=== PATIENT | male | born 1995 | race Caucasian/White ===

== ENCOUNTER 2024-08-11 21:31 | Emergency (ER) | payer BC, SELFPAY ==
[2024-08-11 21:34] VITALS: BP 158/103; PULSE 81; TEMP 36.8; O2SAT 98; BMI 34.4
[2024-08-11] MEDS: TETRACAINE HCL 0.5% OP SOL 80 DROP/4 ML BOTTLE OP (21:59)
[2024-08-11] MEDS: FLUORESCEIN SODIUM 1 MG STRIP OP (22:00)
--- NOTE | 2024-08-11 22:10 | PC.NURSE ---
Unable to obtain visual acuity--pt photophobic
--- NOTE | 2024-08-11 22:18 | ED_ITS ---
HPI - Eye Problem General Chief complaint: Eye Problems Stated complaint: EYE Time Seen by Provider: 08/11/24 21:44 Source: patient Mode of arrival: ambulance Limitations: no limitations History of Present Illness HPI Narrative: cc - left eye fb Pt was creating a wooden project and using a router earlier today when he felt sawdust go into his left eye. He used saline rinse to try and remove it and also flushed the eye with tap water. He admitted that he has been rubbing his eye a lot since this occurred. No vision loss or decrease. No blurred vision. Related Data Allergies Allergy/AdvReac Type Severity Reaction Status Date / Time No Known Drug Allergies Allergy Verified 08/11/24 21:41 PFSH PFSH Social History Little interest or pleasure in doing things: not at all Feeling down, depressed, or hopeless: not at all Exam Narrative Exam Narrative: General: The patient appears well and in no apparent distress. Patient is resting comfortably on cart. Skin: Warm, dry, no pallor noted. Head: Normocephalic, atraumatic Eye: Normal extraocular motion without associated pain. Pupils equal, round and reactive to light. Conjunctival injection noted throughout the left eye. mild swelling of the upper/lower eyelid. Patient's upper eyelid was everted - no evidence of foreign body underneath the eyelid and no foreign bodies observed within the gutters or beneath the lower eyelid. The patient had TETRACAINE applied to the left eye with fluorescein dye instilled afterward. Exam with Wood's lamp showed NO uptake at the cornea. No evidence of hyphema, dendritic lesion, corneal ulcerations, preseptal cellulitis or orbital cellulitis. Ears, Nose, Mouth, and Throat: oral mucosa is moist Respiratory: Patient is in no distress Neurological: A&O x4, normal speech Psychiatric: Cooperative and interactive. Constitutional Vital Signs, click to edit/add: Last Vital Signs Temp 98.3 F 08/11/24 21:34 Pulse 81 08/11/24 21:34 Resp 16 08/11/24 21:34 BP 158/103 H 08/11/24 21:34 Pulse Ox 98 08/11/24 21:34 O2 Del Method Room Air 08/11/24 21:34 Course Vital Signs Vital signs: Vital Signs Temperature 98.3 F 08/11/24 21:34 Pulse Rate 81 08/11/24 21:34 Respiratory Rate 16 05/31/25 21:34 Blood Pressure 158/103 H 08/11/24 21:34 Pulse Oximetry 98 08/11/24 21:34 Oxygen Delivery Method Room Air 08/11/24 21:34 Temperature 98.3 F 08/11/24 21:34 Pulse Rate 81 08/11/24 21:34 Respiratory Rate 16 08/11/24 21:34 Blood Pressure 158/103 H 08/11/24 21:34 Pulse Oximetry 98 08/11/24 21:34 Oxygen Delivery Method Room Air 08/11/24 21:34 MDM - Eye Problem MDM Narrative Medical decision making narrative: No corneal abrasion noted but there is injection in the left eye, likely from a prior foreign body or dust that has been subsequently rinsed out. Patient has been rubbing that eye so as a result the upper and lower left eyelids are slightly swollen and his upper left cheek is red and swollen. Pt informed of my findings and he was given tobradex ophth solution with the first dose applied to the left eye - 1-2 drops - and the bottle given to the patient to use at home. he was instructed to apply 1 drop to the left eye 4 times daily for one week. 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 Discharge Plan Discharge Chief Complaint: Eye Problems Clinical Impression: Acute iritis, Eye foreign bodies Patient Disposition: Home, Self-Care Time of Disposition Decision: 22:26 Print Language: Cam[place]onian Instructions: Iritis (ED) Additional Instructions: apply 1 drop of tobradex solution to left eye 4 times daily for 7 days Referrals: FRANSISCA NIEVES [Physician, Optometry] - 1 week Referral Note: [address] , [place] [address]
[2024-08-11] MEDS: TOBRAMYCIN/DEXAMETHASONE 0.3%/0.1% OP SUSP 50 DROP/2.5 ML BOTTLE 2 ML OP (22:25)
[2024-08-11 22:38] VITALS: BP 145/80
== END 2024-08-11 22:40 | disposition home or self-care (01) ==
PROVIDERS: Emergency Provider Emergency Medicine; PCP Family Medicine
DX: H20.00 Unspecified acute and subacute iridocyclitis (principal); T15.92XA Foreign body on external eye, part unspecified, left eye, initial encounter; H57.12 Ocular pain, left eye
CPT/HCPCS: 99283